=== PATIENT | female | born 1995 | race Caucasian/White ===

== ENCOUNTER 2020-01-11 12:07 | Outpatient (CLI) | payer OTHER, SELFPAY ==
--- NOTE | ~2020-01-11 | MR_ITS ---
EXAMINATION: MR lumbar spine wo con DATE: 01/11/2020 12:51 INDICATION: Low back pain. TECHNIQUE: Magnetic resonance imaging (MRI) of the lumbar spine was performed without intravenous con trast. Sequences included sagittal T2-weighted FSE, sagittal T2-weighted FS FSE, sagittal T1-weighted FSE, and axial T2-weighted FSE. COMPARISON: None FINDINGS: Bone alignment is normal. Vertebral body heights are normal. There is mildly decreased disc height at L4-L5. The distal spinal cord signal intensity is normal. The conus medullaris is at L2. T he following disc levels are specifically discussed: L1-L2 through L3-L4: The disc does not extend beyond the endplate margin. There is no facet joint ost eoarthritis. There is no neural foraminal stenosis. There is no central canal stenosis. L4-L5: The disc is bulging and has an annular fissure. There is no facet joint osteoarthritis. There is mild bilateral neural foraminal stenosis. There is mild central canal stenosis. L5-S1: The disc does not extend beyond the endplate margin. There is no facet joint osteoarthritis. T here is no neural foraminal stenosis. There is no central canal stenosis. IMPRESSION: 1. Mild lumbar spondylosis. Reviewed, dictated and finalized at location B. IMPRESSION: 1. Mild lumbar spondylosis.
== END 2020-01-11 12:08 ==
PROVIDERS: PCP Family Medicine; Visit Provider Family Medicine
DX: M54.5 Low back pain (principal); M47.816 Spondylosis without myelopathy or radiculopathy, lumbar region
CPT/HCPCS: 72148

== ENCOUNTER 2021-02-07 12:24 | Emergency (ER) | payer OTHER, SELFPAY | END 2021-02-07 12:33 | disposition left against medical advice (07) | PROVIDERS: Emergency Provider Internal Medicine Hematology & Oncology; PCP Family Medicine | DX: Z53.21 Procedure and treatment not carried out due to patient leaving prior to being seen by health care provider (principal) | CPT/HCPCS: 99199 ==

== ENCOUNTER 2021-02-07 12:53 | Emergency (ER) | payer OTHER, SELFPAY ==
[2021-02-07 13:08] VITALS: BP 137/88; PULSE 80; RESP 18; TEMP 36.4; O2SAT 100
--- NOTE | 2021-02-07 13:13 | ED.URI ---
HPI - URI/Sore Throat General Chief Complaint: Upper Respiratory Infection Stated Complaint: Sore Throat,Runny Nose Time Seen by Provider: 02/07/21 13:13 Source: patient Mode of arrival: ambulatory Limitations: no limitations History of Present Illness HPI Narrative: Marlyn Varma is a 25 yo female with no PMH who comes to [facility] with sore throat and low-grade fever for the last 2 days(fever 102.5 for 1 night). She had Covid in April and got the vaccine in June and July, she received a Pfizer vaccine. 60 mg yesterday also always has seasonal allergies but does not use Zyrtec etc. because it dries her out too much Related Data Home Medications Medication Instructions Recorded Confirmed lansoprazole 30 mg PO DAILY 02/07/21 02/07/21 norgestimate-ethinyl estradiol 1 tablet PO DAILY 02/07/21 02/07/21 [Estarylla] Allergies Allergy/AdvReac Type Severity Reaction Status Date / Time No Known Allergies Allergy Unknown Verified 02/07/21 13:07 Review of Systems Review of Systems: CONSTITUTIONAL: Denies fever, chills, sweats. EYES: Denies visual changes, redness, discharge. ENT: Has rhinorrhea, has congestion, has sore throat, otalgia. CARDIOVASCULAR: Denies chest pain, palpitations, edema. RESPIRATORY: Denies dyspnea, wheezing, mild cough GASTROINTESTINAL: Denies abdominal pain, nausea, vomiting, diarrhea. GENITOURINARY: Denies dysuria, hematuria, abnormal discharge SKIN: Denies rash or itching. NEUROLOGIC: Denies numbness, or focal weakness. PSYCHIATRIC: Denies anxiety or depression. PMFSH Past Medical History Medical History No acute medical problems Family History Family History Other No acute medical problems Social History Social History (Updated 02/07/21 @ 13:31 by Jannette Hester CNP) Smoking status: Never smoker Alcohol intake: current Living arrangements: with family Comments At time of signature, I agree with nursing past medical, surgical, social and family history. There is no relevant family history pertinent to the presenting complaint. Exam Narrative: GENERAL: This is a well-nourished, well-developed patient, in mild distress. HEAD: normocephalic, atraumatic. EYES: Sclera clear/white. Vision is grossly intact. EARS: External ears normal, auditory canals erythematous and without drainage, TMs without perforation. Hearing grossly intact. NOSE: External nose normal without nasal discharge, nares with redness, has rhinorrhea. THROAT: Mucous membranes moist, posterior pharynx with erythema on left side NECK: Neck supple, CARDIOVASCULAR: Regular rate and rhythm without murmurs, gallops, or rubs. RESPIRATORY: Clear to auscultation. Breath sounds equal bilaterally. No wheezes, rales, or rhonchi. GASTROINTESTINAL: Abdomen soft, SKIN: warm, intact with no suspicious lesions or rash, good texture and turgor. NEURO: awake, alert, and oriented to person, place and time. There were no obvious focal neurologic abnormalities. Steady gait EXTREMITIES: Normal range of motion. BACK: Nontender without deformity Course Course Emergency Course: Patient comes a sore throat and congestion x2 days states had a low-grade fever the night before last which was 102.5-had Covid in April, has been vaccinated Strep test done- test negative PCR sent; should quarantine until results obtained started on mucinex and prednisone Vital Signs Vital signs: Vital Signs Temperature 97.6 F 02/07/21 13:08 Pulse Rate 80 02/07/21 13:08 Respiratory Rate 18 02/07/21 13:08 Blood Pressure 137/88 02/07/21 13:08 Pulse Oximetry 100 02/07/21 13:08 Temperature 97.6 F 02/07/21 13:08 Pulse Rate 80 02/07/21 13:08 Respiratory Rate 18 02/07/21 13:08 Blood Pressure 137/88 02/07/21 13:08 Pulse Oximetry 100 02/07/21 13:08 MDM - URI/Sore Throat Differential Diagno
[2021-02-09 18:39] LABS: SARS-CoV-2 RNA PCR Negative
== END 2021-02-07 14:20 | disposition home or self-care (01) ==
PROVIDERS: Emergency Provider Nurse Practitioner; PCP Family Medicine
DX: J06.9 Acute upper respiratory infection, unspecified (principal); Z20.822 Contact with and (suspected) exposure to COVID-19
CPT/HCPCS: 87081; 87880; 99213; C9803; G0463; U0003; U0005

== ENCOUNTER → 2022-01-20 09:46 | Outpatient (CLI) | payer OTHER, SELFPAY ==
--- NOTE | ~2022-01-20 | MR_ITS ---
EXAMINATION: MR lumbar spine wo con DATE: 01/20/2022 10:23 INDICATION: Lumbar radiculopathy. TECHNIQUE: Magnetic resonance imaging (MRI) of the lumbar spine was performed without intravenous con trast. Sequences included sagittal T2-weighted FSE, sagittal T2-weighted FS FSE, sagittal T1-weighted FSE, and axial T2-weighted FSE. COMPARISON: 01/11/2020 FINDINGS: Alignment is normal. Vertebral body heights are normal. Moderate L4-L5 disc height loss with annular fissure and associated fibrofatty and fibrovascular degenerative endplate changes at this level. Bone marrow signal is otherwise normal. Remaining discs are normal. The conus medullaris terminates at L1 -L2. There is normal signal in the caudal spinal cord. Paravertebral soft tissues are unremarkable. T he following disc levels are specifically discussed: T12-L1: The disc does not extend beyond the endplate margin. There is minimal bilateral facet joint o steoarthritis. There is no neural foraminal stenosis. There is no central canal stenosis. L1-L2: Disc is minimally bulging. There is no facet joint osteoarthritis. There is no neural foramina l stenosis. There is no central canal stenosis. L2-L3: Disc is minimally bulging. There is minimal bilateral facet joint osteoarthritis. There is no neural foraminal stenosis. There is no central canal stenosis. L3-L4: Disc is minimally bulging. There is minimal bilateral facet joint osteoarthritis. There is no neural foraminal stenosis. There is no central canal stenosis. L4-L5: Disc is mildly bulging with superimposed annular fissure and central disc protrusion. There is mild bilateral facet joint osteoarthritis. There is mild bilateral neural foraminal stenosis. There is mild central canal stenosis along with narrowing of the lateral recesses, left greater than right. . L5-S1: Disc is mildly bulging. There is mild bilateral facet joint osteoarthritis. There is minimal b ilateral neural foraminal stenosis. There is no central canal stenosis. IMPRESSION: 1. Slight progression in now mild to moderate disc height loss at L4-L5 with annular fissure and enla rging central disc protrusion. 2. No significant change in minimal more cephalad lumbar spondylosis. Reviewed, dictated and finalized at location A. IMPRESSION: 1. Slight progression in now mild to moderate disc height loss at L4-L5 with an nular fissure and enlarging central disc protrusion. 2. No significant change in minimal more cephalad lumbar spondylosis.
== END ==
DX: M54.16 Radiculopathy, lumbar region (principal); M51.34 Other intervertebral disc degeneration, thoracic region
CPT/HCPCS: 72148

== ENCOUNTER 2022-11-17 15:38 | Outpatient (CLI) | payer OTHER, SELFPAY | END 2022-11-17 15:39 | disposition home or self-care (01) | LOC: ANHLAB 15:39 | PROVIDERS: Visit Provider Obstetrics & Gynecology | DX: O20.9 Hemorrhage in early pregnancy, unspecified (principal); Z3A.00 Weeks of gestation of pregnancy not specified | CPT/HCPCS: 36415; 84702 ==

== ENCOUNTER 2022-11-19 09:39 | Outpatient (CLI) | payer OTHER, SELFPAY | END 2022-11-19 09:40 | disposition home or self-care (01) | PROVIDERS: PCP Family Medicine; Visit Provider Obstetrics & Gynecology | DX: O20.9 Hemorrhage in early pregnancy, unspecified (principal); Z3A.00 Weeks of gestation of pregnancy not specified | CPT/HCPCS: 36415; 84702 ==

== ENCOUNTER 2022-12-11 08:14 | Outpatient (CLI) | payer OTHER, SELFPAY ==
[2022-12-11 10:36] LABS: Basophils Absolute Auto 0.1 K/mm3 (0.0-0.1); Basophils Percent Auto 0.5 % (0.2-1.2); Eosinophils Absolute Auto 0.2 K/mm3 (0-0.3); Eosinophils Percent Auto 1.7 % (0-4.4); Hematocrit 40.7 % (37.0-47.0); Hemoglobin 13.5 g/dL (12.0-15.0); Immature Granulocyte Absolute 0.03 K/mm3 (0.00-0.031); Immature Granulocyte Percent A 0.3 % (0-0.5); Lymphocytes Absolute Auto 2.15 K/mm3 (0.9-3.2); Lymphocytes Percent Auto 20.3 % (18.3-44.2); Mean Corpuscular HGB Conc 33.2 g/dl (32-36); Mean Corpuscular Hemoglobin 28.4 pg (26-34); Mean Corpuscular Volume 85.5 fl (80-100); Mean Platelet Volume 11.3 fl (7.4-10.4); Monocytes Absolute Auto 0.6 K/mm3 (0.1-0.6); Neutrophils Absolute Auto 7.6 K/mm3 (1.3-6.7); Neutrophils Percent Auto 71.2 % (45.5-73.1); Platelet Count Result 300 k/mm3 (150-375); Red Blood Count 4.76 M/mm3 (4.2-5.4); Red Cell Distribution Width 13.1 % (11.5-14.5); White Blood Count 10.6 K/mm3 (4.5-10.0)
[2022-12-11 10:48] LABS: Glucose 1 Hour PP 50gm Dose 89 mg/dL
[2022-12-11 11:33] LABS: HIV 1/2 Ab P24 Ag Result Negative (Negative)
[2022-12-11 11:58] LABS: Hepatitis B Surface Antigen Negative (Negative); Rubella IgG Antibody 63.8 IU/ML
[2022-12-11 17:28] LABS: Rapid Plasma Reagin Non-Reactive (NonReactive)
[2022-12-15 17:45] LABS: CMV IgG Antibody <0.60 U/mL (<0.60)
== END 2022-12-11 08:15 | disposition home or self-care (01) ==
PROVIDERS: PCP Family Medicine; Visit Provider Obstetrics & Gynecology
DX: N94.89 Other specified conditions associated with female genital organs and menstrual cycle (principal)
CPT/HCPCS: 36415; 82947; 84702; 85025; 86038; 86592; 86644; 86703; 86747; 86762; 86787; 86900; 86901; 87086; 87088; 87340; G0432

== ENCOUNTER 2023-06-22 16:53 | Inpatient (IN) | payer OTHER, SELFPAY ==
[2023-06-22] VITALS (19 sets, daily range): BP systolic 87–128; BP diastolic 46–81; PULSE 76–144; TEMP 36.8–37; BMI 39.3
--- NOTE | 2023-06-22 16:53 | LDADM ---
This patient, Marlyn Varma, was admitted to Labor/Delivery/Recovery 109 on 06/22/23 at 16:53. Plans for labor, pain management and were discussed with patient. Patient/family oriented to hospital policies and general routines including ID bracelet, bed and alarms, visiting hours, pain management, procedures, bathroom and other care routines, personal items, smoking policy, room service/diet and guest tray routines, infant security routines, and visiting hours. Patient/Family are encouraged to report perceived risks to care and to ask questions if they do not understand what they are told or what they should do. See OBIX for further documentation.
[2023-06-22 17:48] LABS: Basophils Absolute Auto 0.1 K/mm3 (0.0-0.1); Basophils Percent Auto 0.3 % (0.2-1.2); Eosinophils Absolute Auto 0.2 K/mm3 (0-0.3); Eosinophils Percent Auto 1.1 % (0-4.4); Hematocrit 37.5 % (37.0-47.0); Hemoglobin 12.1 g/dL (12.0-15.0); Immature Granulocyte Absolute 0.12 K/mm3 (0.00-0.031); Immature Granulocyte Percent A 0.8 % (0-0.5); Lymphocytes Absolute Auto 2.61 K/mm3 (0.9-3.2); Lymphocytes Percent Auto 16.6 % (18.3-44.2); Mean Corpuscular HGB Conc 32.3 g/dl (32-36); Mean Corpuscular Hemoglobin 27.6 pg (26-34); Mean Corpuscular Volume 85.4 fl (80-100); Monocytes Percent Auto 6.5 % (2.6-8.5); Neutrophils Absolute Auto 11.7 K/mm3 (1.3-6.7); Neutrophils Percent Auto 74.7 % (45.5-73.1); Platelet Count Result 331 k/mm3 (150-375); Red Blood Count 4.39 M/mm3 (4.2-5.4); Red Cell Distribution Width 13.6 % (11.5-14.5); White Blood Count 15.7 K/mm3 (4.5-10.0)
[2023-06-22] MEDS: DINOPROSTONE 10 MG VAG INSERT VAGINAL (18:07)
--- NOTE | 2023-06-22 19:31 | WPDANESEPP ---
Anes - Eval Pre Procedure Procedure: labor epidural Date/Time: 06/22/23 19:31 Surgeon: harlan Preop Diagnosis: pain during labor Pre Op Diagnosis: IOL Patient Data Age: 28 Gender: F Height: 1.65 m Weight: 107.25 kg Last Vital Signs Pulse 126 H 06/22/23 19:16 BP 92/63 L 06/22/23 19:16 O2 Del Method Room Air 06/22/23 17:47 Allergies Allergy/AdvReac Type Severity Reaction Status Date / Time No Known Allergies Allergy Unknown Verified 06/14/23 09:17 Home Medications Medication Instructions Recorded Confirmed Type vitamins-iron fumarate 65 1 tablet PO DAILY 04/15/23 06/22/23 History mg iron-folic acid 1 mg tablet Laboratory Tests 06/22/23 17:25 WBC 15.7 H K/mm3 (4.5-10.0) RBC 4.39 M/mm3 (4.2-5.4) Hgb 12.1 g/dL (12.0-15.0) Hct 37.5 % (37.0-47.0) MCV 85.4 fl (80-100) MCH 27.6 pg (26-34) MCHC 32.3 g/dl (32-36) RDW 13.6 % (11.5-14.5) Plt Count 331 k/mm3 (150-375) MPV 11.0 H fl (7.4-10.4) Immature Gran % (Auto) 0.8 H % (0-0.5) Neut % (Auto) 74.7 H % (45.5-73.1) Lymph % (Auto) 16.6 L % (18.3-44.2) [place] % (Auto) 6.5 % (2.6-8.5) Eos % (Auto) 1.1 % (0-4.4) Baso % (Auto) 0.3 % (0.2-1.2) Lymph # (Auto) 2.61 K/mm3 (0.9-3.2) [place] # (Auto) 1.0 H K/mm3 (0.1-0.6) Eos # (Auto) 0.2 K/mm3 (0-0.3) Baso # (Auto) 0.1 K/mm3 (0.0-0.1) Abs Immat Gran (auto) 0.12 H K/mm3 (0.00-0.031) Absolute Neuts (auto) 11.7 H K/mm3 (1.3-6.7) Absolute Nucleated RBC 0.0 K/mm3 (0.0-0.012) Nucleated RBC % 0.0 % (0.0-0.2) RPR Pending Blood Type O Positive Antibody Screen Negative Patient hx anesthesia problems: none Family hx anesthesia problems: none Results Review: All pre-operative results and documents have been reviewed as part of the pre-operative evaluation. [facility] Past Medical History Medical History Bleeding in early Degenerative disc disease No acute medical problems Pseudotumor cerebri no meds Suppression of menstruation Threatened Surgical History Surgical History History of appendectomy 2012 Hx of cholecystectomy Family History Family History Grandparent Diabetes mellitus Other Carcinoma of colon Paternal aunt Mother Cervical cancer Other No acute medical problems Social History Social History Smoking status: Never smoker Second hand tobacco smoke exposure: No Alcohol intake: never Substance use: never Substance use type: does not use Do You Feel Safe in your Home?: Yes Lack of Transportation: No Lack of Food: Never True Current Housing: I Have Housing Concerned About Future Housing: No Difficulty Paying Gas/Electric Bills: No Difficulty Paying for Meds: No Currently Unemployed: No Education: High School Diploma/GED Difficulty w/ Childcare or Family Care: No Living arrangements: with family Additional living arrangements comments: 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
[2023-06-23] VITALS (42 sets, daily range): BP systolic 59–144; BP diastolic 28–107; PULSE 65–168; RESP 18; TEMP 36.2–36.8; O2SAT 95–100
[2023-06-23] MEDS: LACTATED RINGERS 1,000 ML 999 ML IV CONT (02:28)
[2023-06-23] MEDS: LACTATED RINGERS 1,000 ML 125 ML IV CONT (03:36)
[2023-06-23] MEDS: OXYTOCIN 30 UNITS/NS 500 ML 30 UNITS/500 ML BAG 999 UNITS IV CONT (03:51)
--- NOTE | 2023-06-23 04:21 | P.PCNOB_ITS ---
OB - Vaginal Delivery Note Procedure Delivery date: 06/23/23 Induction method: Per Cervidil Protocol Delivery augmentation: Rupture of Membranes Delivery monitor: External FHT and External Uterine Route of delivery: Episiotomy description: None Laceration Description: Perineal - 2nd Degree Delivery repair: chromic Specimen: No Quantitative Blood Loss (ml): 300 Anesthesia type: Epidural Disposition: Floor Complications: No immediate complications Narrative: Patient prepped and draped usual manner for this procedure. Precipitous delivered vertex the rest of baby delivered without difficulty. Cord clamped and cut and placenta delivered spontaneously. There are few remaining membranes which were also readily removed. Cervix vagina vulva were inspected with second-degree laceration noted. This was injected with lidocaine and approximated by using 2-0 chromic to approximate the vaginal tissue, deep tissue was then approximated in subcuticular layer to approximate the perineum. At this point the procedure was considered terminated with the uterus well contracted and minimal bleeding. Immediate postoperative condition of mother and baby were both excellent. [place] Baby Weeks of gestation at delivery: 39 Infant gender: Male Weight (pounds): 7 Weight (ounces): 13 presentation: vertex position: Right Occiput Anterior Placenta delivery description: Spontaneous Cord Vessel Description: 3 Vessels score one minute: 8 score five minutes: 9 AMG Delivery Billing Delivery Delivery: Delivery Charge
--- NOTE | 2023-06-23 04:21 | WPDHPUPDATE1 ---
History and Physical Update Update Date/Time: 06/23/23 04:21 History and Physical has been reviewed, including an updated exam of the patient. There are NO changes in the patient's condition. Risks, benefits, and alternatives have been discussed and questions answered. Patient agrees to proceed with procedure.
--- NOTE | 2023-06-23 04:21 | WPDOBADMIT ---
Obstetrics - Admit Note Admission Note: record reviewed. No pertinent additions to the history and/or any subsequent changes in the physical findings that are not consistent with the expected course of the were found. Additions to the history and/or subsequent changes in the physical findings follow. None.
[2023-06-23] MEDS: OXYTOCIN 30 UNITS/NS 500 ML 30 UNITS/500 ML BAG 125 UNITS IV CONT (04:30)
[2023-06-23] MEDS: WITCH HAZEL 40 PADS 1 PAD TOPICAL (06:46)
[2023-06-23] MEDS: BENZOCAINE 20% AER SPR (*SP) 56 GM CAN 1 SPRAY TOPICAL (06:46)
--- NOTE | 2023-06-23 07:21 | PC.NURSE ---
Patient transferred to post room #287 via wheelchair. Support person present. Oriented to unit, room, information board, rooming in, admission packet and security measures. Patient verbalizes understanding.
[2023-06-23] MEDS: DOCUSATE SODIUM 100 MG CAPSULE PO (08:16)
[2023-06-23] MEDS: LANOLIN (LANSINOH) 7.5 GM CREAM 1 APPLIC TOPICAL (08:16)
--- NOTE | 2023-06-23 14:03 | PC.NURSE ---
[id number] Breast pump provided earlier due to mother's choice to pump and feed. Instructions given on cleaning, care, usage, that there should be no pain, pumping schedule for milk production, collection, and storage of human milk. Patient was assessed for correct placement, flange size, to pump for comfort and nipple stretching/stimulation for adequate milk production every 3 hours (8 times in 24 hours) 1-2 times at night. Reviewed consistency, preventing engorgement, plugged ducts and mastitis along with how to treat if it does occur. We discussed when to call the doctor for mother and/or baby and Mother voiced understanding of the education shared along with mom/baby guide.
[2023-06-23 14:44] LABS: Rapid Plasma Reagin Non-Reactive (NonReactive)
[2023-06-23] MEDS: IBUPROFEN 600 MG TABLET PO (19:35)
[2023-06-24 04:46] LABS: Hematocrit 33.5 % (37.0-47.0); Hemoglobin 10.8 g/dL (12.0-15.0)
--- NOTE | 2023-06-24 07:25 | PM.OBDSVD ---
DS: Admitting Diagnosis Discharge Date 06/24/2023 Admitting Diagnosis DS: Discharge Diagnosis Discharge Diagnosis (1) , delivered: Code(s): O80 - Encounter for full-term uncomplicated delivery Status: Acute OB - DS: Summary OB Procedures : None OB Procedures Intrapartum: Spontaneous Vag Delivery OB Procedures: : None Peripartum Data Laceration Description: Perineal - 2nd Degree Episiotomy description: None Time Spent with Patient Time attestation: Total time spent providing and/or coordinating discharge services: DS: Data Data Completed and Pending Labs on day of discharge: Labs from last 24 hours 06/24/23 06/22/23 03:31 17:25 Hgb 10.8 L Hct 33.5 L RPR Non-reactive Discharge Plan Discharge Discharging Clinician: Da Miranda Patient Disposition: Home, Self-Care Activity: as tolerated Diet: as tolerated Patient Instructions: Antibiotic Form Stand Alone Forms: General Discharge Information Follow-up/Referrals: Da Miranda MD [Physician] - 3 Weeks Discharge Medications: New ibuprofen 600 mg Tablet 600 mg PO Q6H PRN (Reason: Cramping) Qty: 30 0RF Continued vit-iron fum-folic ac 65 mg iron- 1 mg tablet 1 tablet PO DAILY Date of admission: 06/22/23 16:53 Primary Care Provider: Lenny,Myra Rivera Admitting Provider: Da Miranda Attending physician on admission: Da Miranda Condition: Stable
[2023-06-24 07:45] VITALS: BP 114/70; PULSE 81; RESP 16; TEMP 36.7; O2SAT 100
[2023-06-24] MEDS: DOCUSATE SODIUM 100 MG CAPSULE PO (09:14)
[2023-06-24] MEDS: TETANUS,DIPHTHERIA,AC PERTUSSIS ADULT (0.5 ML) BOOSTRIX IM (09:15)
--- NOTE | 2023-06-24 11:44 | PC.NURSE ---
0900 Patient viewed the discharge video Mother & Baby Care, The First Two Weeks . Patient was given the opportunity and encouraged to ask questions. Patient verbalized understanding of information shared and has been given the mother/baby guide for home reference.
--- NOTE | 2023-06-24 17:09 | PC.NURSE ---
[id number] Purposefully rounded to assess for pumping needs. Mother states she has pain with pumping. Mother is using a Medela pump in style advanced that she used with her first child 4.5 years ago with a 24 mm breast shield. Assessment of nipple with measurement led to changing the breast shield size to 21mm. Patient was assessed for correct placement, flange size, to pump for comfort and nipple stretching/stimulation for adequate milk production every 3 hours (8 times in 24 hours) 1-2 times at night. After 2 minutes of pumping mother remained pain free with pumping and the breast shield size remained at 21mm. Instructions given on cleaning, care, usage, that there should be no pain, pumping schedule for milk production, collection, and storage of human milk. The history with mother was freely shared as a painful and unsuccessful experience with her first child so, she decided to pump and feed. We discussed her protecting her milk supply and resources were given to her if she decided to practice her as the parents are packed up and going home soon. Mother voiced understanding of the education shared along with mom/baby guide. Reported to the Primary RN.
[2023-06-25 10:22] VITALS: BP 121/68; PULSE 95; RESP 18; TEMP 37.1; O2SAT 100
== END 2023-06-24 11:38 | disposition home or self-care (01) | DRG 807 ==
LOC: ANHLDR 16:56 → ANHOB2 06-23 07:23
PROVIDERS: Admitting Provider Obstetrics & Gynecology; PCP Family Medicine; Visit Provider Obstetrics & Gynecology
DX: O70.1 Second degree perineal laceration during delivery (principal); Z37.0 Single live birth; Z3A.39 39 weeks gestation of pregnancy; Z23 Encounter for immunization
CPT/HCPCS: 36415; 84112; 85014; 85018; 85025; 86592; 86850; 86900; 86901; 90471; 90686; 90715; A9270; G0008; J2590; J2795; J7120